=== PATIENT | male | born 1950 | race Caucasian/White ===

== ENCOUNTER → 2018-01-13 | Outpatient (CLI) | payer MEDICARE, OTHER ==
[~2018-01-13] MED LIST: ATENOLOL50 MG PO; GLUCOPHAGE850 MG/TAB PO; HCTZ 25MG25 MG PO; LEVAQUIN 5500 MG/TA1 PO; LIPITOR 40MG TA40 MG PO; LOTENSIN10 MG PO; PERCOCET 325 MG1 TA2 PO; PREDNISONE20 MG PO; PROAIR HFA0.09 MG/AC IH; PROVENTIL0.09 MG/A1 IH; TENORMIN 5050 MG/TAB PO; TUSS PO; ZOCOR40 MG PO
== END ==
LOC: COL.RAD 09:36
DX: Z13.6 Encounter for screening for cardiovascular disorders (principal); R10.11 Right upper quadrant pain; F17.290 Nicotine dependence, other tobacco product, uncomplicated

== ENCOUNTER → 2018-08-01 | Outpatient (CLI) | payer MEDICARE, OTHER | LOC: COL.RAD 08:00 | DX: M99.73 Connective tissue and disc stenosis of intervertebral foramina of lumbar region (principal); M48.061 Spinal stenosis, lumbar region without neurogenic claudication; M51.37 Other intervertebral disc degeneration, lumbosacral region ==

== ENCOUNTER → 2018-08-11 | Outpatient (CLI) | payer MEDICARE, OTHER ==
[~2018-08-11] VITALS: Ht 175.3 cm; Wt 102.2 kg
[~2018-08-11] MED LIST changes: -ATENOLOL50 MG PO; +BENICAR HCT 12.1 TA1 PO; +BREO IH; +CANA100T PO; +HCTZ 25MG TAB25 MG PO; -HCTZ 25MG25 MG PO; -LOTENSIN10 MG PO; +LOTENSIN20 MG PO; +TALTZ AUTO80 MG/1 ML SQ
[2018-08-11 12:24] VITALS: BP 152/82; PULSE 58
[2018-08-11 13:10] VITALS: BP 146/74; PULSE 56
== END ==
LOC: COL.RAD 11:45
DX: M51.36 Other intervertebral disc degeneration, lumbar region (principal); M48.07 Spinal stenosis, lumbosacral region
CPT/HCPCS: J3301

== ENCOUNTER → 2018-08-27 | Outpatient (CLI) | payer MEDICARE, OTHER ==
[~2018-08-27] VITALS: Ht 175.3 cm; Wt 100.0 kg
[2018-08-27 09:48] VITALS: BP 141/78; PULSE 57
[2018-08-27 10:30] VITALS: BP 139/74; PULSE 60
== END ==
LOC: COL.RAD 08:45
DX: M48.062 Spinal stenosis, lumbar region with neurogenic claudication (principal)
CPT/HCPCS: J3301

== ENCOUNTER → 2019-01-21 | Outpatient (CLI) | payer MEDICARE, OTHER | LOC: MHCPAIN 09:44 | DX: G89.29 Other chronic pain (principal); M47.817 Spondylosis without myelopathy or radiculopathy, lumbosacral region; M54.16 Radiculopathy, lumbar region; M53.3 Sacrococcygeal disorders, not elsewhere classified | CPT/HCPCS: G0463 ==

== ENCOUNTER → 2019-01-27 | Outpatient (CLI) | payer MEDICARE, OTHER | LOC: COL.RAD 07:23 | DX: D69.3 Immune thrombocytopenic purpura (principal); K76.0 Fatty (change of) liver, not elsewhere classified ==

== ENCOUNTER → 2019-01-29 | Outpatient (CLI) | payer MEDICARE, OTHER | LOC: MHCPAIN 13:29 | DX: M47.817 Spondylosis without myelopathy or radiculopathy, lumbosacral region (principal); M54.16 Radiculopathy, lumbar region | CPT/HCPCS: J1040; Q9967 ==

== ENCOUNTER → 2019-04-08 | Outpatient (CLI) | payer MEDICARE, OTHER | LOC: MHCPAIN 15:29 | DX: G89.29 Other chronic pain (principal); M47.817 Spondylosis without myelopathy or radiculopathy, lumbosacral region; M53.3 Sacrococcygeal disorders, not elsewhere classified | CPT/HCPCS: G0463 ==

== ENCOUNTER → 2019-04-16 | Outpatient (CLI) | payer MEDICARE, OTHER | LOC: MHCPAIN 13:46 | DX: M47.817 Spondylosis without myelopathy or radiculopathy, lumbosacral region (principal); M54.16 Radiculopathy, lumbar region ==

== ENCOUNTER → 2019-04-28 | Outpatient (CLI) | payer MEDICARE, OTHER | LOC: MHCPAIN 14:53 | DX: G89.29 Other chronic pain (principal); M47.817 Spondylosis without myelopathy or radiculopathy, lumbosacral region; M54.16 Radiculopathy, lumbar region; M53.3 Sacrococcygeal disorders, not elsewhere classified | CPT/HCPCS: G0463 ==

== ENCOUNTER → 2019-04-30 | Outpatient (CLI) | payer MEDICARE, OTHER | LOC: MHCPAIN 14:14 | DX: M47.817 Spondylosis without myelopathy or radiculopathy, lumbosacral region (principal); M54.16 Radiculopathy, lumbar region | CPT/HCPCS: J2250; J3010 ==

== ENCOUNTER → 2019-05-04 | Outpatient (CLI) | payer MEDICARE, OTHER | LOC: MHCPAIN 13:38 | DX: M47.817 Spondylosis without myelopathy or radiculopathy, lumbosacral region (principal); M54.16 Radiculopathy, lumbar region | CPT/HCPCS: J2250; J3010 ==

== ENCOUNTER → 2019-07-01 | Outpatient (CLI) | payer MEDICARE, OTHER | LOC: MHCPAIN 15:43 | DX: G89.29 Other chronic pain (principal); M47.817 Spondylosis without myelopathy or radiculopathy, lumbosacral region; M54.16 Radiculopathy, lumbar region; M53.3 Sacrococcygeal disorders, not elsewhere classified | CPT/HCPCS: G0463 ==

== ENCOUNTER → 2019-07-22 | Outpatient (CLI) | payer MEDICARE, OTHER | LOC: COL.RAD 07:29 | DX: R91.1 Solitary pulmonary nodule (principal) | CPT/HCPCS: Q9967 ==

== ENCOUNTER → 2019-12-17 | Outpatient (CLI) | payer MEDICARE, OTHER | LOC: MHCPAIN 14:39 | DX: M53.3 Sacrococcygeal disorders, not elsewhere classified (principal) | CPT/HCPCS: G0260; J1040; Q9967 ==

== ENCOUNTER → 2019-12-30 | Outpatient (CLI) | payer MEDICARE, OTHER | LOC: MHCPAIN 15:06 | DX: M54.5 Low back pain (principal); M47.817 Spondylosis without myelopathy or radiculopathy, lumbosacral region | CPT/HCPCS: G0463 ==

== ENCOUNTER → 2020-01-07 | Outpatient (CLI) | payer MEDICARE, OTHER | LOC: MHCPAIN 13:46 | DX: M54.5 Low back pain (principal); M53.3 Sacrococcygeal disorders, not elsewhere classified ==

== ENCOUNTER → 2020-04-01 | Emergency (ER) | payer MEDICARE, OTHER ==
[~2020-04-01] VITALS: Ht 175.3 cm; Wt 104.5 kg
[~2020-04-01] MED LIST changes: +DIOVAN HCT 25 M1 TA1 PO; +JARDIANCE10; +NEURONTIN600 MG/TAB PO
[2020-04-01 22:15] VITALS: TEMP 97.4
[2020-04-01 22:39] LABS: ALBUMIN 4.3 gm/dL (3.5-5.0); BILIRUBIN,TOTAL 0.8 mg/dL (0.0-1.0); CALCIUM 9.3 mg/dL (8.4-10.2); CREATININE, serum 0.78 (0.66-1.25); POTASSIUM 3.7 mmol/L (3.4-5.0); TOTAL PROTEIN 7.7 gm/dL (6.4-8.2)
[2020-04-01 22:40] LABS: BASO # 0.1 (0.0-0.2); BASO % 0.7 % (0.0-2.0); EOS # 0.2 (0.0-0.7); EOS % 2.3 % (0-4.0); GRAN # 5.2 (1.4-6.5); GRAN % 59.1 % (42.2-75.2); HEMATOCRIT 50.9 % (42.0-52.0); HEMOGLOBIN 17.4 g/dl (13.5-18.0); LYMPH # 2.1 (1.2-3.4); LYMPH % 24.1 % (20.0-51.0); MEAN CELL VOLUME 96 fl (80.0-100.0); MEAN CORPUSCULAR HEMOGLOBIN 33 pg (27.0-31.0); MEAN CORPUSCULAR HGB CONC 34 g/dl (33.0-37.0); MEAN PLATELET VOLUME 11.3 fl (7.4-10.4); MONO # 1.2 (0.1-0.6); MONO % 13.1 % (1.7-9.3); PLATELET COUNT 87 K/mm3 (130-400); RED BLOOD COUNT 5.29 M/mm3 (4.20-5.60); REDCELL DISTRIBUTION WIDTH-CV 15.1 % (11.5-14.5)
[2020-04-02 00:23] VITALS: BP 132/70; PULSE 68
== END ==
LOC: COL.ER 22:14
PROVIDERS: Emergency Medicine
DX: S01.01XA Laceration without foreign body of scalp, initial encounter (principal); F10.120 Alcohol abuse with intoxication, uncomplicated; R40.2412 Glasgow coma scale score 13-15, at arrival to emergency department; Y90.7 Blood alcohol level of 200-239 mg/100 ml; Z79.84 Long term (current) use of oral hypoglycemic drugs; Z79.51 Long term (current) use of inhaled steroids; W19.XXXA Unspecified fall, initial encounter; Y92.009 Unspecified place in unspecified non-institutional (private) residence as the place of occurrence of the external cause

== ENCOUNTER 2021-09-13 15:19 | Outpatient (RCR) | payer MEDICARE, OTHER | END 2021-11-10 | disposition home or self-care (01) | LOC: WSST | DX: R49.0 Dysphonia (principal) ==

== ENCOUNTER 2022-01-03 16:00 | Outpatient (RCR) | payer MEDICARE | END 2022-01-08 | disposition home or self-care (01) | LOC: WSST | DX: R49.0 Dysphonia (principal) ==

== ENCOUNTER → 2022-02-09 | Outpatient (CLI) | payer MEDICARE | LOC: COL.RAD 01-15 15:00 | DX: Z12.2 Encounter for screening for malignant neoplasm of respiratory organs (principal); R91.8 Other nonspecific abnormal finding of lung field; F17.210 Nicotine dependence, cigarettes, uncomplicated ==

== ENCOUNTER 2022-05-09 12:58 | Day surgery (SDC) | payer MEDICARE ==
[~2022-05-09] VITALS: Ht 175.3 cm; Wt 96.4 kg
[~2022-05-09 12:58] MED LIST changes: -JARDIANCE10; +JARDIANCE10 PO
[2022-05-09 13:47] VITALS: BP 147/58; PULSE 45; TEMP 97.4
[2022-05-09] MEDS ORDERED: STIOLTO RESPIMAT4 GM IH (13:50)
[2022-05-09] MEDS ORDERED: LIPITOR 80MG80 MG PO (13:50)
[2022-05-09 15:24] VITALS: TEMP 97.7
[2022-05-09 15:35] VITALS: BP 142/58; PULSE 57
--- NOTE | 2022-05-09 15:35 | NUR ---
Patient returns to room 8 per cart and is awake and alert. Temp 97.4. Sats 96% on 2L per nasal cannula. Denies difficultly swallowing or breathing. States that he wants chocolate ice cream. Spouse in room.
[2022-05-09 15:50] VITALS: BP 137/59; PULSE 53
--- NOTE | 2022-05-09 15:50 | NUR ---
Tolerates ice cream. Oxygen removed and sats down to 88%. O2 placed back on at 2L per nasal cannula. Encouraged deep breathing.
[2022-05-09 16:05] VITALS: BP 147/59; PULSE 52
--- NOTE | 2022-05-09 16:05 | NUR ---
Resting and offers no complaints of pain or swallowing.
[2022-05-09 16:20] VITALS: BP 145/61; PULSE 59
--- NOTE | 2022-05-09 16:20 | NUR ---
Oxygen removed and sats 97. Complains of throat becoming more sore.
--- NOTE | 2022-05-09 16:20 | NUR ---
Sats maintain 97-98% on room air. Rates throat discomfort at 3/10. Will medicate prior to discharge.
--- NOTE | 2022-05-09 16:30 | NUR ---
Tylenol 1000 mg po given for discomfort. Instructed to sip on cool liquids, eat cool snacks and avoid hot foods. Also instructed to sleep in recliner and keep head up 30 degrees.
--- NOTE | 2022-05-09 16:50 | NUR ---
IV discontinued and site is free of redness. Patient dresses self. Standing up at bedside and gait steady.
--- NOTE | 2022-05-09 16:59 | NUR ---
Patient dismissed to home driven by spouse and taken to the vehicle per wheelchair and assisted into car with dismissal instructions in hand.
== END 2022-05-09 16:59 | disposition home or self-care (01) ==
LOC: SDCO 12:58
DX: C32.9 Malignant neoplasm of larynx, unspecified (principal); J38.7 Other diseases of larynx
CPT/HCPCS: J0330; J1100; J2405; J2704; J3010; J7030

== ENCOUNTER → 2022-05-18 | Outpatient (CLI) | payer MEDICARE ==
[~2022-05-18] MED LIST changes: +LIPITOR 80MG80 MG PO; +STIOLTO RESPIMAT4 GM IH
== END ==
LOC: COL.RAD 14:11
DX: Z12.2 Encounter for screening for malignant neoplasm of respiratory organs (principal); R91.1 Solitary pulmonary nodule; Z87.891 Personal history of nicotine dependence